=== PATIENT | male | born 1990 | race Caucasian/White ===

== ENCOUNTER → 2017-12-31 | Outpatient (CLI) | payer OTHER ==
[~2017-12-31] MED LIST: DILANTIN; LOR1 PO; PERM60CR17 TP; PHEN100 PO; PHEN100C88 PO
== END ==
LOC: RESP 01:28
PROVIDERS: ATTEND Physician Assistant Medical
DX: G40.409 Other generalized epilepsy and epileptic syndromes, not intractable, without status epilepticus (principal)
CPT/HCPCS: 95819